=== PATIENT | female | born 1975 | race Caucasian/White ===

== ENCOUNTER → 2018-01-14 | Outpatient (CLI) | payer BC ==
[2016-07-15 09:56] VITALS: BP 142/90
[~2018-01-14] MED LIST: BUPR150T11 PO; CIPR500T94 PO; CLIN300C8 PO; ESCITALOPRAM OX10 MG PO; FLUC150T PO; HYDR-971 PO; LISI-334 PO; OMEP40CA5 PO
--- NOTE | 2018-01-14 12:14 | RAD ---
CT abdomen and pelvis without contrast 01/14/2018 Clinical indication: Hematuria. Comparison: CT abdomen and pelvis 06/02/2016 Technique: Multiple CT images of the abdomen and pelvis were obtained without contrast. PQRS Compliance Statement: One or more of the following individualized dose reduction techniques were utilized for this examination: 1. Automated exposure control 2. Adjustment of the mA and/or kV according to patient size 3. Use of iterative reconstruction technique Findings: Evaluation of the solid abdominopelvic viscera, lymphadenopathy and vasculature is limited in the absence of intravenous contrast. Heart size is normal. Visualized lung bases are clear. Moderate diffuse hepatic steatosis. Gallbladder, spleen, adrenal glands, pancreas and kidneys are grossly unremarkable. Abdominal aorta is normal in caliber. There is a tiny hiatal hernia. Small and large bowel loops are normal in caliber without obstruction. Appendix is normal in appearance. No abdominal free fluid. No pneumoperitoneum. No retroperitoneal or mesenteric lymphadenopathy. Mildly distended and unopacified urinary bladder is grossly unremarkable. Prior hysterectomy with the vaginal cuff unremarkable. The right ovary is not definitely identified and may be absent. There is enlargement of the left ovary measuring 4.8 x 2.8 cm series 2/image 111. No pelvic free fluid. No iliac or inguinal lymphadenopathy. There is a tiny fat-containing inguinal hernia. There are no destructive osseous lesions. Impression: 1. No hydronephrosis or nephrolithiasis. 2. Left ovarian enlargement with nonvisualization of the right ovary, may be surgically absent. Clinical correlation and pelvic ultrasound is recommended for further evaluation. 3. Hepatic steatosis.
== END | disposition home or self-care (01) ==
LOC: CT 10:50
PROVIDERS: ATTEND Family Medicine
DX: N30.00 Acute cystitis without hematuria (principal); K76.0 Fatty (change of) liver, not elsewhere classified; N83.8 Other noninflammatory disorders of ovary, fallopian tube and broad ligament; K40.90 Unilateral inguinal hernia, without obstruction or gangrene, not specified as recurrent; K44.9 Diaphragmatic hernia without obstruction or gangrene
CPT/HCPCS: 74176

== ENCOUNTER 2018-02-07 15:15 | Emergency (ER) | payer BC ==
[~2018-02-07] VITALS: Ht 170.2 cm; Wt 111.1 kg
[2018-02-07 15:23] VITALS: BP 142/90
--- NOTE | 2018-02-07 16:06 | RAD ---
Right knee, 3 views, 02/07/2018: History: Fall, pain No fracture or dislocation is identified. No joint effusion is evident. IMPRESSION: No acute right knee abnormality is detected. Left ankle, 3 views, 02/07/2018: No fracture or dislocation is identified. There is mild soft tissue swelling about the ankle. IMPRESSION: No acute bony abnormality is detected. Left wrist, 3 views, 02/07/2018: No fracture or dislocation is identified.
[2018-02-07] MEDS ORDERED: HYDROcodone/APAP 5/325MG 1 TAB TABLET PO ONE (16:15)
[2018-02-07] MEDS ORDERED: HYDR-971 PO (16:19)
[2018-02-07] MEDS ORDERED: CYCL-331 PO (16:19)
--- NOTE | 2018-02-07 16:19 | PHYS DOC ---
Past History Past Medical History: Hypertension, UTI Past Surgical History: Hysterectomy, Other Smoking: Non-smoker Alcohol Use: None Drug Use: None Adult General Chief Complaint Chief Complaint: MULTIPLE TRAUMA/FALL HPI HPI 42-year-old male patient state she was in vacation in [place] and had an accidental fall from a standing position after she tripped on her shoe 5 days ago and injured her right knee and increased and ankle without loss of consciousness or focal neuro deficit. Patient complaining of continuing pain in affected areas that getting force with activity. Patient states she took ibuprofen without improvement of her pain. Patient is up-to-date with her tetanus immunization. Review of Systems Review of Systems Constitutional: Denies fever or chills [] Eyes: Denies change in visual acuity, redness, or eye pain [] HENT: Denies nasal congestion or sore throat [] Respiratory: Denies cough or shortness of breath [] Cardiovascular: No additional information not addressed in HPI [] GI: Denies abdominal pain, nausea, vomiting, bloody stools or diarrhea [] : Denies dysuria or hematuria [] Musculoskeletal: Denies back pain, reports joint pain [] Integument: Denies rash or skin lesions [] Neurologic: Denies headache, focal weakness or sensory changes [] Endocrine: Denies polyuria or polydipsia [] All other systems were reviewed and found to be within normal limits, except as documented in this note. Current Medications Current Medications Current Medications Medications (Trade) Dose Ordered Sig/Randy Start Time Stop Time Status Last Admin Dose Admin Acetaminophen/ Hydrocodone Bitart (Lortab 5/325) 1 tab 1X ONCE 02/07/18 16:15 02/07/18 16:16 Allergies Allergies Allergies Coded Allergies Type Severity Reaction Last Updated Verified Sulfa (Sulfonamide Antibiotics) Allergy Unknown 06/02/16 Yes promethazine Allergy Unknown 06/02/16 Yes metoclopramide Adverse Reaction Mild 06/02/16 Yes Physical Exam Physical Exam Constitutional: Well developed, well nourished, mild distress, non-toxic appearance. [] HENT: Normocephalic, atraumatic Eyes: PERRLA, EOMI, conjunctiva normal, no discharge. [] Neck: Normal range of motion, no tenderness, supple, no stridor. [] Cardiovascular:Heart rate regular rhythm, no murmur [] Lungs & Thorax: Bilateral breath sounds clear to auscultation [] Abdomen: Bowel sounds normal, soft, no tenderness, no masses, no pulsatile masses. [] Skin: Warm, dry, no erythema, no rash, several areas of contusion. [] Back: No tenderness, no CVA tenderness. [] Extremities: Right knee with old contusion and abrasion in distal and lateral side of knee without deformity or limited range of motion, left wrist with small contusion without deformity, left ankle with lateral malleolus edema without deformity Neurologic: Alert and oriented X 3, normal motor function, normal sensory function, no focal deficits noted. [] Psychologic: Affect normal, judgement normal, mood normal. [] EKG EKG [] Radiology/Procedures Radiology/Procedures [ [address] [place] [id number] IMAGING REPORT Signed PATIENT: RACHEL WOLF ACCOUNT: [id number] : 1975 LOCATION: ER AGE: 42 SEX: F EXAM [id number]; [id number] STATUS: REG ER ORD. PHYSICIAN: LORE HOLLINGSWORTH MD REASON: fall PROCEDURE: ANKLE LEFT 3V; KNEE RIGHT 3V; WRIST 3V LEFT Right knee, 3 views, 02/07/2018: History: Fall, pain No fracture or dislocation is identified. No joint effusion is evident. IMPRESSION: No acute right knee abnormality is detected. Left ankle, 3 views, 02/07/2018: No fracture or dislocation is identified. There is mild soft tissue swelling about the ankle. IMPRESSION: No acute bony abnormality is detected. Left wrist, 3 views, 02/07/2018: No fracture or dislocation is identified. IMPRESSION: No acute bony abnormality is detected. DICTATED AND SIGNED BY: DAVIS ESCOBEDO MD DATE: 02/07/18 [id number] CC: DANAE MUNOZ DO; LORE HOLLINGSWORTH MD ~ ] Course & Med Decision Making Course & Med Decision Making Pertinent Imaging studies reviewed. (See chart for details) Evaluation of patient in ER showed 42-year-old female patient with a fall 5 days ago and complaining of pain in several joint. X-ray did not show acute fracture. Patient had old contusion of right knee and left wrist and edema of left ankle. Patient instructed to apply ice on the affected area. Dragon Disclaimer Dragon Disclaimer This electronic medical record was generated, in whole or in part, using a voice recognition dictation system. Departure Departure: Impression: Primary Impression: Contusion of right knee Additional Impressions: Contusion of left wrist Left ankle sprain Fall Disposition: 01 HOME, SELF-CARE Condition: STABLE Referrals: DANAE MUNOZ DO (PCP) Patient Instructions: Contusion Additional Instructions: Apply ice on the affected area Follow-up with your primary care physician in 3-5 days Return to ER if not getting better Scripts Hydrocodone Bit/Acetaminophen (NORCO 5-325 TABLET) 1 Each Tablet 1 TAB PO PRN Q6HRS Y for PAIN, #10 TAB 0 Refills Prov: LORE HOLLINGSWORTH MD 02/07/18 Cyclobenzaprine Hcl (CYCLOBENZAPRINE HCL) 10 Mg Tablet 1 TAB PO TID, #21 TAB Prov: LORE HOLLINGSWORTH MD 02/07/18 Problem Qualifiers LORE HOLLINGSWORTH MD Feb 07, 2018 16:19
== END 2018-02-07 16:28 | disposition home or self-care (01) ==
LOC: ER 15:15
DX: S93.402A Sprain of unspecified ligament of left ankle, initial encounter (principal); S80.01XA Contusion of right knee, initial encounter; S60.212A Contusion of left wrist, initial encounter; I10 Essential (primary) hypertension; Z87.440 Personal history of urinary (tract) infections; Z88.2 Allergy status to sulfonamides; Z88.8 Allergy status to other drugs, medicaments and biological substances; W01.0XXA Fall on same level from slipping, tripping and stumbling without subsequent striking against object, initial encounter; Y93.89 Activity, other specified; Y99.8 Other external cause status; Y92.89 Other specified places as the place of occurrence of the external cause
CPT/HCPCS: 73110; 73562; 73610; 99284

== ENCOUNTER → 2018-02-11 | Outpatient (CLI) | payer BC ==
[2018-02-07 15:23] VITALS: BP 142/90
[~2018-02-11] MED LIST changes: +CYCL-331 PO
--- NOTE | 2018-02-11 10:01 | RAD ---
Indication: Left wrist pain status post fall. Technique: CT of the left breast without IV contrast with multiplanar reformats. Comparison: Plain films from 02/02 Findings: There is a nondisplaced fracture of the hook of the hamate. No other fracture or dislocation. No evidence of joint space narrowing or productive changes to suggest arthritic process. No soft tissue swelling or hematoma. Impression: Nondisplaced fracture of the hook of the hamate. PQRS Compliance Statement: One or more of the following individualized dose reduction techniques were utilized for this examination: 1. Automated exposure control 2. Adjustment of the mA and/or kV according to patient size 3. Use of iterative reconstruction technique
== END | disposition home or self-care (01) ==
LOC: CT 09:28
PROVIDERS: ATTEND Nurse Practitioner Family
DX: S62.155D Nondisplaced fracture of hook process of hamate [unciform] bone, left wrist, subsequent encounter for fracture with routine healing (principal); Z91.81 History of falling; X58.XXXD Exposure to other specified factors, subsequent encounter
CPT/HCPCS: 73200

== ENCOUNTER 2018-06-26 11:16 | Emergency (ER) | payer BC ==
[~2018-06-26] VITALS: Ht 170.2 cm; Wt 120.7 kg
[2018-06-26] MEDS ORDERED: LIDOCAINE 1%/EPI 1:100,000 20 ML VIAL. IJ ONE (11:30)
[2018-06-26] MEDS ORDERED: BACITRACIN ZINC TOPICAL OINT PACKET. TP ONE (11:30)
[2018-06-26] MEDS ORDERED: DIPHTH,PERTUSS(ACELL),TET TOX 0.5 ML DISP.SYRIN. VAX IM ONE (11:45)
[2018-06-26 12:25] VITALS: BP 133/54
--- NOTE | 2018-06-26 12:28 | PHYS DOC ---
Past History Past Medical History: Hypertension, UTI Past Surgical History: Hysterectomy, Other Smoking: Non-smoker Alcohol Use: Occasionally Drug Use: None Adult General Chief Complaint Chief Complaint: LACERATION/AVULSION HPI HPI 42-year-old female presents with report of laceration to right richards which occurred just prior to arrival. Patient reports they were cleaning and she ended up knocking one of her husbands drill bits off a top shelf and ended up coming down causing a cut to her right richards. Patient unsure when her last tetanus shot was. Patient thinks it was greater than 5 years ago. Denies other injury. Review of Systems Review of Systems Constitutional: Denies fever or chills [] Musculoskeletal: Denies back pain or joint pain [] Integument: Reports laceration to right richards; denies redness or swelling Complete systems were reviewed and found to be within normal limits, except as documented in this note. Current Medications Current Medications Current Medications Medications (Trade) Dose Ordered Sig/Randy Start Time Stop Time Status Last Admin Dose Admin Bacitracin (Bacitracin Topical Pkt) 1 pkt 1X ONCE 06/26/18 11:30 06/26/18 11:31 DC 06/26/18 12:14 1 PKT Diphtheria/ Tetanus/Acell Pertussis (Boostrix) 0.5 ml ONCE ONCE 06/26/18 11:45 06/26/18 11:46 DC 06/26/18 11:52 0.5 ML Lidocaine/ Epinephrine (Xylocaine 1%-Epi 1:100,000) 20 ml 1X ONCE 06/26/18 11:30 06/26/18 11:31 DC 06/26/18 12:13 20 ML Allergies Allergies Allergies Coded Allergies Type Severity Reaction Last Updated Verified Sulfa (Sulfonamide Antibiotics) Allergy Unknown 06/02/16 Yes promethazine Allergy Unknown 06/02/16 Yes metoclopramide Adverse Reaction Mild 06/02/16 Yes Physical Exam Physical Exam Constitutional: Well developed, well nourished, no acute distress, non-toxic appearance. [] HENT: Normocephalic, atraumatic, Eyes: Conjunctiva normal, no discharge. [] Neck: Normal range of motion, supple, Cardiovascular: Left DP and PT +2, CR < 2 sec Skin: Warm, dry, vertical incision noted to distal 1/3 of richards on right approximately 4cm Extremities: ROM intact, laceration to right anterior richards as above Neurologic: Alert and oriented X 3, speech normal Psychologic: Affect normal, judgement normal, mood normal. [] Current Patient Data Vital Signs Vital Signs Date Time Temp Pulse Resp B/P (MAP) Pulse Ox O2 Delivery O2 Flow Rate FiO2 06/26/18 11:25 98.6 98 20 95 Room Air EKG EKG [] Radiology/Procedures Radiology/Procedures [] Course & Med Decision Making Course & Med Decision Making Pertinent Labs and Imaging studies reviewed. (See chart for details) Patient presents with history of laceration to right richards. Tetanus updated. Wound cleaned, irrigated, repaired and dressed. Patient stable for discharge with outpatient follow-up with PCP. Discussed findings and plan with patient and family, who acknowledge understanding and agreement. Dragon Disclaimer Dragon Disclaimer This electronic medical record was generated, in whole or in part, using a voice recognition dictation system. Laceration/Wound Repair Laceration/Wound Repair : Wound Location: lower extremity (right richards) Wound's Depth, Shape: superficial, linear Wound Length (cm): 4 Wound Explored: no foreign body removed Irrigated w/ Saline (ccs): 200 Betadine Prep?: No (Chloraprep) Anesthesia: Lidocaine w/ Epi (1%) Volume Anesthetic (ccs): 3 Wound Debrided: minimal Wound Repaired With: sutures Suture Size/Type: 3:0, nylon Number of Sutures: 6 Sterile Dressing Applied?: Yes Progress Time out completed. Verbal consent from patient. Departure Departure: Impression: Primary Impression: Laceration Disposition: 01 HOME, SELF-CARE Condition: STABLE Referrals: DANAE MUNOZ DO (PCP) Patient Instructions: Laceration Care, Adult, [id number] Additional Instructions: Do not soak your wound. You may shower. Clean wound daily with soap and water. Change dressing 2 times daily. Use over the counter antibiotic ointment with each dressing change. Sutures need to be removed in 7-10 days. Present to your family doctor or local urgent care for removal. You may also present to the ED but it will be an additional visit/charge. After suture removal you may use Vitamin E ointment to soften the wound and prevent scarring. AMANDA COLE DO Jun 26, 2018 12:28
[2018-06-27] MEDS ORDERED: HYDR-79 PO (22:30)
[2018-06-27] MEDS ORDERED: CEPH-264 PO (22:31)
== END 2018-06-26 12:48 | disposition home or self-care (01) ==
LOC: ER 11:16
DX: S81.811A Laceration without foreign body, right lower leg, initial encounter (principal); I10 Essential (primary) hypertension; Z87.440 Personal history of urinary (tract) infections; Z88.2 Allergy status to sulfonamides; Z88.8 Allergy status to other drugs, medicaments and biological substances; W26.8XXA Contact with other sharp object(s), not elsewhere classified, initial encounter; Y93.E9 Activity, other interior property and clothing maintenance; Y92.89 Other specified places as the place of occurrence of the external cause; Y99.8 Other external cause status
CPT/HCPCS: 12002; 90471; 90715; 99283-25

== ENCOUNTER 2018-06-27 22:10 | Emergency (ER) | payer BC ==
[~2018-06-27] VITALS: Ht 170.2 cm; Wt 120.7 kg
--- NOTE | 2018-06-27 22:14 | ED.ADGEN ---
Past History Past Medical History: Hypertension, UTI Past Surgical History: Hysterectomy, Other Smoking: Non-smoker Alcohol Use: Occasionally Drug Use: None Adult General Chief Complaint Chief Complaint ".. I was just here for laceration on Rt. leg.. now I got this infection on my personal part... I get the abscess every so often.. I was using compresses... but it gotten really sore..." HPI HPI Patient is a 42 year old female who presents with above hx and complaints Lt Labia abscess. Patient has a pointing pimple and surrounding cellulitis. Patient's had frequent episodes of small abscesses and cellulitis. Patient does shave her pubic area. Patient denies any history immunosuppression. Patient states her tetanus was updated yesterday when she was here for sutures of her right richards. There is no significant adenopathy. No history of vaginal discharge. She denies history of diabetes. No recent travel or specific ill contacts. Patient normally follows with Dr. Caldwell. Review of Systems Review of Systems Constitutional: Denies fever or chills [] Eyes: Denies change in visual acuity, redness, or eye pain [] HENT: Denies nasal congestion or sore throat [] Respiratory: Denies cough or shortness of breath [] Cardiovascular: No additional information not addressed in HPI [] GI: Denies abdominal pain, nausea, vomiting, bloody stools or diarrhea [] : Denies dysuria or hematuria [] Musculoskeletal: Denies back pain or joint pain [] Integument: Denies rash or skin lesions []Cellulitis lt labia majora Neurologic: Denies headache, focal weakness or sensory changes [] Endocrine: Denies polyuria or polydipsia [] All other systems were reviewed and found to be within normal limits, except as documented in this note. Family History Family History Noncontributory Current Medications Current Medications Current Medications Medications (Trade) Dose Ordered Sig/Randy Start Time Stop Time Status Last Admin Dose Admin Ceftriaxone Sodium (Rocephin Im) 1 gm 1X ONCE 06/27/18 22:30 06/27/18 22:46 DC 06/27/18 22:44 1 GM Ceftriaxone Sodium (Rocephin) 1 gm STK-MED ONCE 06/27/18 22:37 06/27/18 22:38 DC Hydrocodone Bitartrate/ Ibuprofen (Vicoprofen 7.5-200) 2 tab 1X ONCE 06/27/18 22:45 06/27/18 22:46 DC 06/27/18 22:44 2 TAB Trimethoprim/ Sulfamethoxazole (Bactrim Ds) 1 tab 1X ONCE 06/27/18 22:30 06/27/18 22:34 DC Allergies Allergies Allergies Coded Allergies Type Severity Reaction Last Updated Verified Sulfa (Sulfonamide Antibiotics) Allergy Unknown 06/02/16 Yes promethazine Allergy Unknown 06/02/16 Yes metoclopramide Adverse Reaction Mild 06/02/16 Yes Physical Exam Physical Exam Constitutional: in acute distress, non-toxic appearance. [] HENT: Normocephalic, atraumatic, bilateral external ears normal, oropharynx moist, no oral exudates, nose normal. [] Eyes: PERRLA, EOMI, conjunctiva normal, no discharge. [] Neck: Normal range of motion, no tenderness, supple, no stridor. [] Cardiovascular:Heart rate regular rhythm, no murmur [] Lungs & Thorax: Bilateral breath sounds clear to auscultation [] Abdomen: Bowel sounds normal, soft, no tenderness, no masses, no pulsatile masses. []Obese. Labial abscess as per history of present illness. Old surgery scar Skin: Warm, dry, no erythema, no rash. [] Back: No tenderness, no CVA tenderness. [] Extremities: No tenderness, no cyanosis, no clubbing, ROM intact, no edema. [] Right lower leg dressing at site of prior laceration 06/26 Neurologic: Alert and oriented X 3, normal motor function, normal sensory function, no focal deficits noted. [] Psychologic: Affect anxious, judgement normal, mood normal. [] Current Patient Data Vital Signs Vital Signs Date Time Temp Pulse Resp B/P (MAP) Pulse Ox O2 Delivery O2 Flow Rate FiO2 06/27/18 22:20 98.1 100 16 98 Room Air EKG EKG [] Radiology/Procedures Radiology/Procedures [] Course & Med Decision Making Course & Med Decision Making Pertinent Labs and Imaging studies reviewed. (See chart for details). Continue sitz baths. Will start on Keflex 500x3 times a day. Patient to follow- up primary care advised may need to change to clindamycin or doxycycline if she does not respond to Keflex and the sitz baths. Recommended she not shave her pubic area since this can exacerbate re-current abscesses and folliculitis. Procedure note-incision and drainage- abscess area and cellulitis prepped with Betadine. One stick with 11 blade with approximately 1 mL of pus expressed. [] Final Impression Final Impression 1. Cellulitis- Abscess Lt Labia majora[] Dragon Disclaimer Dragon Disclaimer This electronic medical record was generated, in whole or in part, using a voice recognition dictation system. PUJA ALAN MD Jun 27, 2018 22:13
[2018-06-27] MEDS ORDERED: HYDR-79 PO (22:30)
[2018-06-27] MEDS ORDERED: cefTRIAXone IM 1 GM VIAL IM ONE (22:30)
[2018-06-27] MEDS ORDERED: SMZ/TMP 800/160MG TABLET. PO ONE (22:30)
[2018-06-27] MEDS ORDERED: CEPH-264 PO (22:31)
[2018-06-27] MEDS ORDERED: cefTRIAXone SODIUM 1 GM VIAL IV ONE (22:37)
[2018-06-27] MEDS ORDERED: HYDROcodon/IBUPROFEN 7.5/200MG 1 TAB TABLET PO ONE (22:45)
[2018-06-27 23:05] VITALS: BP 165/92
== END 2018-06-27 23:05 | disposition home or self-care (01) ==
LOC: ER 22:10
DX: N76.4 Abscess of vulva (principal); I10 Essential (primary) hypertension; Z87.440 Personal history of urinary (tract) infections; Z90.710 Acquired absence of both cervix and uterus; Z88.2 Allergy status to sulfonamides; Z88.8 Allergy status to other drugs, medicaments and biological substances
CPT/HCPCS: 56405; 96372; 99284; J0696

== ENCOUNTER → 2018-09-24 | Day surgery (SDC) | payer BC ==
[~2018-09-24] MED LIST changes: +ALBUTEROL SULFATE 2.5 MG/3 ML NEBU. NEB PRN; +ATROPINE 0.5 MG/5 ML DISP.SYRIN. IV PRN; +CEPH-264 PO; +HYDR-79 PO; +IV RINGERS SOLUTION,LACTATED 1,000 ML IV SCH; +LIDOCAINE 2% PF Vial for OR 5 ML VIAL. ONE; +METF500T16 PO; +NALOXONE 0.4 MG/ML VIAL. IV PRN; +ONDANSETRON PF 4 MG/2 ML VIAL. IV PRN; +PROPOFOL 40 ML IV ONE; +TROS60CA2 PO
[2018-09-24 14:18] VITALS: BP 136/83
--- NOTE | 2018-09-28 14:09 | PATHOLOGY ---
[facility] Accession Number: [id number] . 01 Material submitted: . PART A: ANTRUM PART B: GASTRIC POLYP PART C: DISTAL ESOPHAGUS . 01 Clinical history: . Epigastric pain, ulcers . 02 Diagnosis: A. Stomach, antrum, biopsy: - Chronic superficial gastritis, mild. - No evidence of Helicobacter pylori on immunoperoxidase stain. . B. "Gastric polyp", biopsy: - Fundic gland polyp. . C. Esophagus, distal, biopsy: - Squamocolumnar epithelium with focal intestinal metaplasia, findings compatible with Silva's esophagus; negative for dysplasia. - Mild chronic inflammation. . (SKM:mml; 09/28/18) [facility]/09/28/2018 . 02 Electronically signed: . Sha Avendano MD, Pathologist NPI- [id number] . 01 Gross description: . A. Received in formalin labeled "Anahi Choudhury, antrum BX," are 2 segments of patel soft tissue measuring 0.7 x 0.2 x 0.2 cm in aggregate dimensions and ranging from 0.3 to 0.6 cm in maximum dimension. The specimen is submitted entirely in cassette A1. . B. Received in formalin labeled "Anahi Choudhury, gastric polyp," is a single segment of patel soft tissue measuring 0.4 cm in maximum dimension. The specimen is entirely submitted in cassette B1. . C. Received in formalin labeled "Macey, Anahi, distal esophageal biopsy," are 2 segments of patel soft tissue measuring 0.5 x 0.2 x 0.2 cm in aggregate dimensions and ranging from 0.2 to 0.3 cm in maximum dimension. The specimen is submitted entirely in cassette C1. (TSD; 09/27/2018) TOB/TOB . 02 Pathologist provided ICD-10: K29.30, K31.7, K22.70, K20.9 . 02 CPT . 356678, 836320, 312188, [id number] Specimen Comment: A courtesy copy of this report has been sent to Specimen Comment: [phone], . Specimen Comment: Report sent to / DR MUNOZ Specimen Comment: A duplicate report has been generated due to demographic updates. Performed at: [facility] [address] [id number] MD José Manuel Bond MD Phone: [phone] Performed at: [address] [id number] MD Bry Aguilar MD Phone: [phone]
== END | disposition home or self-care (01) ==
LOC: SURG 10:55
PROVIDERS: ATTEND Internal Medicine Gastroenterology
DX: K31.7 Polyp of stomach and duodenum (principal); K44.9 Diaphragmatic hernia without obstruction or gangrene; K29.30 Chronic superficial gastritis without bleeding; K29.00 Acute gastritis without bleeding; K22.8 Other specified diseases of esophagus; K21.0 Gastro-esophageal reflux disease with esophagitis; I10 Essential (primary) hypertension; E11.9 Type 2 diabetes mellitus without complications; Z88.2 Allergy status to sulfonamides; Z88.8 Allergy status to other drugs, medicaments and biological substances; Z79.899 Other long term (current) drug therapy; Z79.84 Long term (current) use of oral hypoglycemic drugs
CPT/HCPCS: 43239; 88305; 88342; J2704; J3010; J2001

== ENCOUNTER 2019-01-13 16:52 | Emergency (ER) | payer SELFPAY ==
[~2019-01-13] VITALS: Ht 170.2 cm; Wt 108.9 kg
[~2019-01-13 16:52] MED LIST changes: -ALBUTEROL SULFATE 2.5 MG/3 ML NEBU. NEB PRN; -ATROPINE 0.5 MG/5 ML DISP.SYRIN. IV PRN; +HYDR-1179 PO; +HYDR-3165 PO; -HYDR-79 PO; -HYDR-971 PO; -IV RINGERS SOLUTION,LACTATED 1,000 ML IV SCH; -LIDOCAINE 2% PF Vial for OR 5 ML VIAL. ONE; -NALOXONE 0.4 MG/ML VIAL. IV PRN; -ONDANSETRON PF 4 MG/2 ML VIAL. IV PRN; -PROPOFOL 40 ML IV ONE
[2019-01-13 16:57] VITALS: BP 134/81
[2019-01-13] MEDS ORDERED: ONDA4TAB12 PO (17:14)
--- NOTE | 2019-01-13 17:15 | PHYS DOC ---
Past History Past Medical History: Depression, GERD, Hypertension Past Surgical History: Hysterectomy, Other Smoking: Non-smoker Alcohol Use: Occasionally Drug Use: None Adult General Chief Complaint Chief Complaint: FLU SYMPTOM HPI HPI 43-year-old female presents with body aches dry cough fever headache upper respiratory type symptoms. Her was diagnosed with the flu last week and is recovering. She did have her flu shot this year. She also states she has had some nausea. She denies any significant abdominal pain though.[] Review of Systems Review of Systems Constitutional: Reports fever[] Eyes: Denies change in visual acuity, redness, or eye pain [] HENT: Nasal congestion and clear rhinorrhea[] Respiratory: Per history of present illness[] Cardiovascular: No additional information not addressed in HPI [] GI: Nausea[] : Denies dysuria or hematuria [] Musculoskeletal: Denies back pain or joint pain [] Integument: Denies rash or skin lesions [] Neurologic: Denies headache, focal weakness or sensory changes [] Endocrine: Denies polyuria or polydipsia [] All other systems were reviewed and found to be within normal limits, except as documented in this note. Allergies Allergies Allergies Coded Allergies Type Severity Reaction Last Updated Verified promethazine Allergy Unknown 09/24/18 Yes metoclopramide Adverse Reaction Mild 09/24/18 Yes Physical Exam Physical Exam Constitutional: Well developed, well nourished, no acute distress, non-toxic appearance. [] HENT: Normocephalic, atraumatic, bilateral external ears normal, oropharynx moist, no oral exudates, nose normal. [] Eyes: PERRLA, EOMI, conjunctiva normal, no discharge. [] Neck: Normal range of motion, no tenderness, supple, no stridor. [] Cardiovascular:Heart rate regular rhythm, no murmur [] Lungs & Thorax: Bilateral breath sounds clear to auscultation [] Abdomen: Bowel sounds normal, soft, no tenderness, no masses, no pulsatile masses. [] Skin: Warm, dry, no erythema, no rash. [] Back: No tenderness, no CVA tenderness. [] Extremities: No tenderness, no cyanosis, no clubbing, ROM intact, no edema. [] Neurologic: Alert and oriented X 3, normal motor function, normal sensory function, no focal deficits noted. [] Psychologic: Affect normal, judgement normal, mood normal. [] Current Patient Data Vital Signs Vital Signs Date Time Temp Pulse Resp B/P (MAP) Pulse Ox O2 Delivery O2 Flow Rate FiO2 01/13/19 16:57 98.5 93 18 97 Room Air EKG EKG [] Radiology/Procedures Radiology/Procedures [] Course & Med Decision Making Course & Med Decision Making Pertinent Labs and Imaging studies reviewed. (See chart for details) [] Dragon Disclaimer Dragon Disclaimer This electronic medical record was generated, in whole or in part, using a voice recognition dictation system. Departure Departure: Impression: Primary Impression: Viral syndrome Disposition: HOME, SELF-CARE Condition: STABLE Referrals: PCP,NO (PCP) Patient Instructions: Influenza A (H1N1), Viral Infections Additional Instructions: Drink plenty of fluids for the next several days including Gatorade, Powerade or Pedialyte. Return to emergency department with any new or concerning symptoms Scripts Ondansetron (ONDANSETRON ODT) 4 Mg Tab.rapdis 1 TAB PO PRN Q6-8HRS for NAUSEA, #16 TAB Prov: BASILIO SANTANA DO 01/13/19 BASILIO SANTANA DO Jan 13, 2019 17:15
== END 2019-01-13 17:21 | disposition home or self-care (01) ==
LOC: ER 16:52
DX: B34.9 Viral infection, unspecified (principal); F32.9 Major depressive disorder, single episode, unspecified; K21.9 Gastro-esophageal reflux disease without esophagitis; I10 Essential (primary) hypertension; Z88.8 Allergy status to other drugs, medicaments and biological substances
CPT/HCPCS: 99283

== ENCOUNTER → 2019-10-10 | Outpatient (CLI) | payer SELFPAY ==
[~2019-10-10] MED LIST changes: +OMEP40CA45 PO; -OMEP40CA5 PO; +ONDA4TAB12 PO
--- NOTE | 2019-10-10 15:58 | RAD ---
CT Abdomen and Pelvis without contrast History: Right flank pain, hematuria Technique: Noncontrast CT imaging was performed of the abdomen and pelvis. Multiplanar images are reviewed. Exposure: One or more of the following individualized dose reduction techniques were utilized for this examination: 1. Automated exposure control 2. Adjustment of the mA and/or kV according to patient size 3. Use of iterative reconstruction technique. Comparison: January 14, 2018 Findings: No urolithiasis or hydronephrosis is identified. There are again some phleboliths in the pelvis. Accurate evaluation of abdominal visceral organs is limited without intravenous contrast. There is no obvious focal abnormality of the spleen, liver, or pancreas. There is no adrenal nodularity. Gallbladder is present without obvious intraluminal abnormality by CT. Accurate evaluation of bowel is limited without oral contrast. There is no significant free air, free fluid, bowel dilatation. Normal appendix is visualized without adjacent inflammatory change. There is retained stool greater of the right colon. There is again some fat in the inguinal canals bilaterally, no bowel. Impression: 1. There is no urolithiasis or hydronephrosis. 2. There is no CT evidence of acute appendicitis. There is retained stool greater of the right colon. Electronically signed by: Galo Christian MD (10/10/2019 3:54 PM) [id number]
== END | disposition home or self-care (01) ==
LOC: CT 15:07
PROVIDERS: ATTEND Physician Assistant
DX: K59.09 Other constipation (principal)
CPT/HCPCS: 74176

== ENCOUNTER 2020-12-26 13:52 | Emergency (ER) | payer BC ==
[~2020-12-26] VITALS: Ht 170.2 cm; Wt 106.0 kg
[~2020-12-26 13:52] MED LIST changes: -CLIN300C8 PO; +CLIN300C9 PO; -LISI-334 PO; +LISI20TA18 PO
[2020-12-26] MEDS ORDERED: FAMOTIDINE 20 MG/2 ML VIAL IVP ONE (14:30)
[2020-12-26] MEDS ORDERED: IV NORMAL SALINE 1,000ML 1,000 ML IV ONE (14:30)
[2020-12-26] MEDS ORDERED: HYDROmorphone PF 1 MG/ML DISP.SYRIN IV ONE (14:30)
[2020-12-26] MEDS ORDERED: ONDANSETRON PF 4 MG/2 ML VIAL. IVP ONE (14:30)
--- NOTE | 2020-12-26 14:32 | PHYS DOC ---
Past History Past Medical History: Depression, GERD, Hypertension Past Surgical History: Hysterectomy, Other Smoking: Non-smoker Alcohol Use: Occasionally Drug Use: None General Adult EDM: Chief Complaint: NAUSEA/VOMITING/DIARRHEA HPI: HPI: History gained from patient and . Patient is a 42-year-old female with a history of gastritis, Silva's esophagitis, biliary colic who presents with chief complaint of nausea and vomiting. Patient states she had an episode similar to today 1 week ago that resolved spontaneously. She states that she developed multiple spells of nonbloody emesis earlier today. She notes that the vomit appears bilious in nature. She does note epigastric and right upper quadrant discomfort. States it is sharp in nature. Denies any dysuria, hematuria, or polyuria. States she has had right upper quadrant symptoms intermittently over the past several years. States she is had her gallbladder evaluated but has never been bad enough to be removed. Denies changes to her stool caliber or consistency. States she last ate yesterday. Denies objective fevers. Does note that she smokes marijuana occasionally for her interstitial cystitis. States the pain is cramping and burning in nature. States it is nonradiating. States it is constant. No other complaints. Review of Systems: Review of Systems: Constitutional: Denies fever or chills Eyes: Denies change in visual acuity HENT: Denies nasal congestion or sore throat Respiratory: Denies cough or shortness of breath Cardiovascular: Denies chest pain or edema GI: Positive for abdominal pain, nausea, vomiting : Denies dysuria Musculoskeletal: Denies back pain or joint pain Integument: Denies rash Neurologic: Denies headache, focal weakness or sensory changes Endocrine: Denies polyuria or polydipsia Lymphatic: Denies swollen glands Psychiatric: Denies depression or anxiety Allergies: Allergies: Allergies Coded Allergies Type Severity Reaction Last Updated Verified promethazine Allergy Unknown 12/26/20 Yes metoclopramide Adverse Reaction Mild 12/26/20 Yes Physical Exam: PE: Constitutional: Well developed, well nourished, no acute distress, non-toxic appearance. [] HENT: Normocephalic, atraumatic, bilateral external ears normal, oropharynx moist, no oral exudates, nose normal. [] Eyes: PERRLA, EOMI, conjunctiva normal, no discharge. [] Neck: Normal range of motion, no tenderness, supple, no stridor. [] Cardiovascular:Heart rate regular rhythm, no murmur [] Lungs & Thorax: Bilateral breath sounds clear to auscultation [] Abdomen: Mild diffuse tenderness to palpation. Worse in the epigastric right upper quadrant. No involuntary guarding or rigidity noted. No peritonitis Skin: Warm, dry, no erythema, no rash. [] Back: No tenderness, no CVA tenderness. [] Extremities: No tenderness, no cyanosis, no clubbing, ROM intact, no edema. [] Neurologic: Alert and oriented X 3, normal motor function, normal sensory function, no focal deficits noted. [] Psychologic: Affect normal, judgement normal, mood normal. [] Current Patient Data: Labs: Laboratory Tests Test 12/26/20 14:18 12/26/20 14:25 Urine Collection Type Void Urine Color Yellow Urine Clarity Clear Urine pH 7.0 Urine Specific [place] 1.020 Urine Protein Neg Urine Glucose (UA) Neg mg/dL Urine Ketones (Stick) >=160 mg/dL Urine Blood Neg Urine Nitrite Neg Urine Bilirubin Neg Urine Urobilinogen Dipstick 0.2 mg/dL Urine Leukocyte Esterase Neg Urine RBC Occ /HPF Urine WBC Occ /HPF Urine Squamous Epithelial Cells Mod /LPF Urine Bacteria Few /HPF Urine Test Negative White Blood Count 7.9 x10^3/uL Red Blood Count 4.40 x10^6/uL Hemoglobin 13.4 g/dL Hematocrit 40.1 % Mean Corpuscular Volume 91 fL Mean Corpuscular Hemoglobin 31 pg Mean Corpuscular Hemoglobin Concent 34 g/dL Red Cell Distribution Width 13.7 % Platelet Count 427 x10^3/uL Neutrophils (%) (Auto) 75 % Lymphocytes (%) (Auto) 19 % Monocytes (%) (Auto) 5 % Eosinophils (%) (Auto) 1 % Basophils (%) (Auto) 0 % Neutrophils # (Auto) 5.9 x10^3uL Lymphocytes # (Auto) 1.5 x10^3/uL Monocytes # (Auto) 0.4 x10^3/uL Eosinophils # (Auto) 0.1 x10^3/uL Basophils # (Auto) 0.0 x10^3/uL Sodium Level 135 mmol/L Potassium Level 3.8 mmol/L Chloride Level 97 mmol/L Carbon Dioxide Level 26 mmol/L Anion Gap 12 Blood Urea Nitrogen 12 mg/dL Creatinine 1.1 mg/dL Estimated GFR (Cockcroft-Gault) 54.2 BUN/Creatinine Ratio 11 Glucose Level 110 mg/dL Calcium Level 9.4 mg/dL Total Bilirubin 0.7 mg/dL Aspartate Amino Transf (AST/SGOT) 26 U/L Alanine Aminotransferase (ALT/SGPT) 56 U/L Alkaline Phosphatase 91 U/L Troponin I Quantitative < 0.017 ng/mL Total Protein 8.1 g/dL Albumin 4.3 g/dL Albumin/Globulin Ratio 1.1 Lipase 141 U/L Current Medications Medications (Trade) Dose Ordered Sig/Randy Route PRN Reason Start Time Stop Time Status Last Admin Dose Admin Sodium Chloride 1,000 ml @ 1,000 mls/hr 1X ONCE IV 12/26/20 14:30 12/26/20 15:29 DC 12/26/20 14:41 Ondansetron HCl (Zofran) 4 mg 1X ONCE IVP 12/26/20 14:30 12/26/20 14:33 DC 12/26/20 14:42 Famotidine (Pepcid Vial) 20 mg 1X ONCE IVP 12/26/20 14:30 12/26/20 14:33 DC 12/26/20 14:45 Hydromorphone HCl (Dilaudid) 1 mg 1X ONCE IV 12/26/20 14:30 12/26/20 14:33 DC 12/26/20 14:51 Fentanyl Citrate (Fentanyl 5ml Vial) 50 mcg 1X ONCE IV 12/26/20 16:00 12/26/20 15:50 DC Haloperidol Lactate (Haldol) 5 mg 1X ONCE IVP 12/26/20 16:00 12/26/20 16:01 DC Vital Signs: Vital Signs Date Time Temp Pulse Resp B/P (MAP) Pulse Ox O2 Delivery O2 Flow Rate FiO2 12/26/20 14:05 97.3 86 16 129/88 (102) 97 Room Air EKG: EKG: [] EKG consistent with normal sinus rhythm. Ventricular rate of 90 bpm. [place] normal. Intervals normal. No acute ischemic changes noted. Radiology/Procedures: Radiology/Procedures: [address] [address] IMAGING REPORT Signed PATIENT: RACHEL WOLF RACCOUNT: [id number] : 1975 LOCATION: ER AGE: 45 SEX: F EXAM STATUS: REG ER ORD. PHYSICIAN: LAN GAMING DO REASON: epigastric pain PROCEDURE: CT ABD PELV W/ IV CONTRST ONLY Abdominal and Pelvis CT, Without Contrast: History: Reason: epigastric pain / Spl. Instructions: / History: Comparison: October 10, 2019. Procedure: Axial images are obtained of the abdomen and pelvis, without IV or oral contrast. Oral Contrast: No Findings: Evaluation of solid organs is limited without contrast. There is tiny pleural effusions. There is a small hiatal hernia. The gallbladder appears normal. The appendix is normal. There is fat-containing inguinal canal hernias bilaterally. There is a 7.3 similar length of moderate wall thickening of the right transve rse colon without surrounding inflammation. There is mild wall thickening of the left colon. There is a 3.7 cm length of moderate wall thickening in the ascending colon. Liver: Normal. Spleen: Normal. Pancreas: Normal. Adrenal Glands: Normal. Kidneys: Normal. There is no free air or free fluid. There is no lymphadenopathy. The urinary bladder appears normal. There is no pericolonic inflammation identified. Impression: 1. Tiny pleural effusions in the lung bases. 2. Segment of wall thickening in the transverse colon and cecum are suspicious for adenocarcinoma however there is also areas of mild wall thickening of the l eft colon and an inflammatory or infectious colitis is possible. Consider follow-up endoscopy. End impression PQRS Compliance Statement: One or more of the following individualized dose reduction techniques were utilized for this examination: 1. Automated exposure control 2. Adjustment of the mA and/or kV according to patient size 3. Use of iterative reconstruction technique Electronically signed by: Amando Stewart III, MD (12/26/2020 5:08 PM) [facility] DICTATED AND SIGNED BY: AMANDO STEWART III, MD DATE: 12/26/201701 CC: ALEXYS IVY PAC; LAN GAMING DO ~MTH0 [address] [address] IMAGING REPORT Signed PATIENT: RACHEL WOLF RACCOUNT: [id number] : 1975 LOCATION: ER AGE: 45 SEX: F EXAM STATUS: REG ER ORD. PHYSICIAN: LAN GAMING DO REASON: RUQ pain. n/v PROCEDURE: ABDOMEN LTD EXAMINATION: US ABDOMEN LTD 12/26/2020 3:30 PM INDICATION: Right upper quadrant pain, nausea vomiting TECHNIQUE: Penny scale and color Doppler ultrasound images of the right upper quadrant were obtained. COMPARISON: CT abdomen pelvis 12/10/2018. FINDINGS: Liver: The liver is normal in size measuring 17.3 cm in length. Normal hepatic echogenicity. No focal liver lesion. Gallbladder: The gallbladder is normal in caliber. No cholelithiasis or sludge. The gallbladder wall is normal in thickness measuring less than 2 mm. Sonographic Campa's sign is negative. Bile ducts: The common bile duct is normal measuring 2 mm. No intrahepatic b iliary duct dilatation. Right kidney: The right kidney measures 9.2 x 5.2 x 4.3 cm. Normal cortical thickness and echogenicity. There is a 6 mm echogenic focus in the right kidney could be a calculus although there is no definite shadowing. No hydronephrosis. Other: Pancreas is normal where visualized. Inferior vena cava is patent at the level of the liver. IMPRESSION: 1. Normal gallbladder. 2. 6 mm echogenic focus in the right kidney, calculus possible although no definite shadowing. No hydronephrosis. Electronically signed by: Jeanette Delatrore MD (12/26/2020 3:57 PM) [id number] DICTATED AND SIGNED BY: JEANETTE DELATORRE MD DATE: 12/26/20 1554 CC: ALEXYS IVY PAC; LAN GAMING DO ~MTH0 0 [] Heart Score: Risk Factors: Risk Factors: DM, Current or recent (<one month) smoker, HTN, HLP, family history of CAD, obesity. Risk Scores: Score 0 - 3: 2.5% MACE over next 6 weeks - Discharge Home Score 4 - 6: 20.3% MACE over next 6 weeks - Admit for Clinical Observation Score 7 - 10: 72.7% MACE over next 6 weeks - Early Invasive Strategies Course & Med Decision Making: Course & Med Decision Making Pertinent Labs and Imaging studies reviewed. (See chart for details) [] Patient is a 45-year-old female who presents with complaint of epigastric abdominal pain associate with nausea and vomiting. Initial vital signs unremarkable. Patient does have mild diffuse tenderness palpation. No acute peritonitis appreciated. Given her history of reported biliary colic and gastritis right upper quadrant ultrasound was obtained. No acute findings identified. Patient did continue to have discomfort after pain medication. Given the CT imaging was obtained. Patient does have infectious versus inflammatory changes in the bowel. Furthermore there was note of concern for s ome change that could present adenocarcinoma. I did discuss the imaging findings with general surgeon Dr. Vargas. He states that it is unclear based on the images if this is anything other than colitis. Given this he did ultimately recommend transfer to [place] for general surgery and GI consultation. I did discuss results of labs and imaging at length with the patient and . They are ultimately agreeable to transfer to [place] for further care. Patient was given a dose of Augmentin in the emergency department. Symptoms are well controlled at this time. She has remained hemodynamically stable and is awaiting transport. Sepideh Disclaimer: Sepideh Disclaimer: This electronic medical record was generated, in whole or in part, using a voice recognition dictation system. Departure Departure: Impression: Primary Impression: Abdominal pain Qualified Codes: R10.84 - Generalized abdominal pain Additional Impressions: Nausea and vomiting Qualified Codes: R11.2 - Nausea with vomiting, unspecified Abnormal abdominal CT scan Disposition: 02 DC/TRF OTHER SHORT TERM HOS Condition: STABLE Referrals: ALEXYS IVY PAC (PCP) LAN GAMING DO Dec 26, 2020 14:32
[2020-12-26 14:42] LABS: BASO % 0 % (0-3); EOS # 0.1 x10^3/uL (0.0-0.7); EOS % 1 % (0-3); HEMATOCRIT 40.1 % (36.0-47.0); HEMOGLOBIN 13.4 g/dL (12.0-15.5); LYMPH # 1.5 x10^3/uL (1.0-4.8); LYMPH % 19 % (24-48); MEAN CORPUSCULAR HEMOGLOBIN 31 pg (25-35); MEAN CORPUSCULAR HGB CONC 34 g/dL (31-37); MEAN CORPUSCULAR VOLUME 91 fL (79-100); MONO # 0.4 x10^3/uL (0.0-1.1); MONO % 5 % (0-9); NEUT # 5.9 x10^3uL (1.8-7.7); NEUT % 75 % (31-73); PLATELET COUNT 427 x10^3/uL (140-400); RED CELL DISTRIBUTION WIDTH 13.7 % (11.5-14.5); WHITE BLOOD COUNT 7.9 x10^3/uL (4.0-11.0)
[2020-12-26 14:54] LABS: U PREG PATIENT NEGATIVE (NEG)
[2020-12-26 14:57] LABS: CALCIUM 9.4 mg/dL (8.5-10.1); CREATININE 1.1 mg/dL (0.6-1.0); GFR 54.2; POTASSIUM 3.8 mmol/L (3.5-5.1)
[2020-12-26 15:04] LABS: ALBUMIN 4.3 g/dL (3.4-5.0); ALBUMIN/GLOBULIN RATIO 1.1 (1.0-1.7); TOTAL BILIRUBIN 0.7 mg/dL (0.2-1.0); TOTAL PROTEIN 8.1 g/dL (6.4-8.2)
[2020-12-26 15:19] LABS: BACTERIA,URINE FEW /HPF (0-FEW); BILIRUBIN,URINE NEG (NEG); CLARITY,URINE CLEAR; COLOR,URINE YELLOW; GLUCOSE,URINE NEG (NEG); NITRITE,URINE NEG (NEG); RBC,URINE OCC /HPF (0-2); SQUAMOUS EPITHELIAL CELL,UR MOD /LPF; UROBILINOGEN,URINE 0.2 mg/dL (0.2 mg/dL); WBC,URINE OCC /HPF (0-4)
[2020-12-26] MEDS ORDERED: fentaNYL PF 250 MCG/5 ML VIAL IV ONE (16:00)
[2020-12-26] MEDS ORDERED: HALOPERIDOL LACT 5 MG/ML VIAL. IVP ONE (16:00)
--- NOTE | 2020-12-26 16:00 | RAD ---
EXAMINATION: US ABDOMEN [facility] 12/26/2020 3:30 PM INDICATION: Right upper quadrant pain, nausea vomiting TECHNIQUE: Penny scale and color Doppler ultrasound images of the right upper quadrant were obtained. COMPARISON: CT abdomen pelvis 12/10/2018. FINDINGS: Liver: The liver is normal in size measuring 17.3 cm in length. Normal hepatic echogenicity. No foc al liver lesion. Gallbladder: The gallbladder is normal in caliber. No cholelithiasis or sludge. The gallbladder wa ll is normal in thickness measuring less than 2 mm. Sonographic Campa's sign is negative. Bile ducts: The common bile duct is normal measuring 2 mm. No intrahepatic biliary duct dilatation. Right kidney: The right kidney measures 9.2 x 5.2 x 4.3 cm. Normal cortical thickness and echogenici ty. There is a 6 mm echogenic focus in the right kidney could be a calculus although there is no defi nite shadowing. No hydronephrosis. Other: Pancreas is normal where visualized. Inferior vena cava is patent at the level of the liver. IMPRESSION: 1. Normal gallbladder. 2. 6 mm echogenic focus in the right kidney, calculus possible although no definite shadowing. No hyd ronephrosis. Electronically signed by: Jeanette Delatorre MD (12/26/2020 3:57 PM) [id number]
--- NOTE | 2020-12-26 16:04 | EKG ---
[address] [address] Test Date: 2020-12-26 Test Time: 14:57:32 Pat Name: RACHEL WOLF Department: Room: Gender: F Painter Helper Spray: JOY : 1975 Requested By: LAN GAMING Order Number: [id number] Reading MD: Measurements Intervals [place] Rate: 90 P: 49 [place]: 164 QRS: 17 QRSD: 90 T: 32 QT: 384 QTc: 474 Interpretive Statements SINUS RHYTHM NORMAL ECG RI6.02 No previous ECG available for comparison
[2020-12-26] MEDS ORDERED: PANTOPRAZOLE IV 40 MG VIAL. IVP ONE (16:30)
[2020-12-26] MEDS ORDERED: IOHEXOL 300 MG/ML 75 ML VIAL. IV ONE (16:45)
--- NOTE | 2020-12-26 17:10 | RAD ---
Abdominal and Pelvis CT, Without Contrast: History: Reason: epigastric pain / Spl. Instructions: / History: Comparison: October 10, 2019. Procedure: Axial images are obtained of the abdomen and pelvis, without IV or oral contrast. Oral Contrast: No Findings: Evaluation of solid organs is limited without contrast. There is tiny pleural effusions. There is a small hiatal hernia. The gallbladder appears normal. The appendix is normal. There is fat-containing inguinal canal hernias bilaterally. There is a 7.3 similar length of moderate wall thickening of the right transverse colon without surro unding inflammation. There is mild wall thickening of the left colon. There is a 3.7 cm length of mod erate wall thickening in the ascending colon. Liver: Normal. Spleen: Normal. Pancreas: Normal. Adrenal Glands: Normal. Kidneys: Normal. There is no free air or free fluid. There is no lymphadenopathy. The urinary bladder appears normal. There is no pericolonic inflammation identified. Impression: 1. Tiny pleural effusions in the lung bases. 2. Segment of wall thickening in the transverse colon and cecum are suspicious for adenocarcinoma how ever there is also areas of mild wall thickening of the left colon and an inflammatory or infectious colitis is possible. Consider follow-up endoscopy. End impression PQRS Compliance Statement: One or more of the following individualized dose reduction techniques were utilized for this examinat ion: 1. Automated exposure control 2. Adjustment of the mA and/or kV according to patient size 3. Use of iterative reconstruction technique Electronically signed by: Otis Trejo III, MD (12/26/2020 5:08 PM) [facility]
[2020-12-26] MEDS ORDERED: CIPROFLOXACIN 400MG PREMIX 200 ML IV ONE (18:00)
[2020-12-26] MEDS ORDERED: AMOX1TAB61 PO (19:28)
--- NOTE | 2020-12-26 19:28 | PHYS DOC ---
Past History Past Medical History: Depression, GERD, Hypertension Past Surgical History: Hysterectomy, Other Smoking: Non-smoker Alcohol Use: Occasionally Drug Use: None Adult General Chief Complaint Chief Complaint: NAUSEA/VOMITING/DIARRHEA HPI HPI Patient is a [age] year old [sex] who presents with [] Review of Systems Review of Systems Constitutional: Denies fever or chills [] Eyes: Denies change in visual acuity, redness, or eye pain [] HENT: Denies nasal congestion or sore throat [] Respiratory: Denies cough or shortness of breath [] Cardiovascular: No additional information not addressed in HPI [] GI: Denies abdominal pain, nausea, vomiting, bloody stools or diarrhea [] : Denies dysuria or hematuria [] Musculoskeletal: Denies back pain or joint pain [] Integument: Denies rash or skin lesions [] Neurologic: Denies headache, focal weakness or sensory changes [] Endocrine: Denies polyuria or polydipsia [] All other systems were reviewed and found to be within normal limits, except as documented in this note. Current Medications Current Medications Current Medications Medications (Trade) Dose Ordered Sig/Randy Start Time Stop Time Status Last Admin Dose Admin Ciprofloxacin Lactate 200 ml @ 200 mls/hr 1X ONCE 12/26/20 18:00 12/26/20 18:59 DC 12/26/20 18:04 200 MLS/HR Famotidine (Pepcid Vial) 20 mg 1X ONCE 12/26/20 14:30 12/26/20 14:33 DC 12/26/20 14:45 20 MG Fentanyl Citrate (Fentanyl 5ml Vial) 50 mcg 1X ONCE 12/26/20 16:00 12/26/20 15:50 DC Haloperidol Lactate (Haldol) 5 mg 1X ONCE 12/26/20 16:00 12/26/20 16:01 DC 12/26/20 16:45 5 MG Hydromorphone HCl (Dilaudid) 1 mg 1X ONCE 12/26/20 14:30 12/26/20 14:33 DC 12/26/20 14:51 1 MG Iohexol (Omnipaque 300 Mg/ml) 75 ml 1X ONCE 12/26/20 16:45 12/26/20 16:46 DC 12/26/20 16:50 75 ML Lorazepam (Ativan Inj) 2 mg STK-MED ONCE 12/26/20 18:06 2/10/21 18:07 DC Metronidazole 100 ml @ 100 mls/hr 1X ONCE 12/26/20 18:30 12/26/20 19:29 Ondansetron HCl (Zofran) 4 mg 1X ONCE 12/26/20 14:30 12/26/20 14:33 DC 12/26/20 14:42 4 MG Pantoprazole Sodium (Protonix Vial) 40 mg 1X ONCE 12/26/20 16:30 12/26/20 16:31 DC 12/26/20 16:43 40 MG Sodium Chloride 1,000 ml @ 1,000 mls/hr 1X ONCE 12/26/20 14:30 12/26/20 15:29 DC 12/26/20 14:41 1,000 MLS/HR Allergies Allergies Allergies Coded Allergies Type Severity Reaction Last Updated Verified promethazine Allergy Unknown 12/26/20 Yes metoclopramide Adverse Reaction Mild 12/26/20 Yes Physical Exam Physical Exam Constitutional: Well developed, well nourished, no acute distress, non-toxic appearance. [] HENT: Normocephalic, atraumatic, bilateral external ears normal, oropharynx moist, no oral exudates, nose normal. [] Eyes: PERRLA, EOMI, conjunctiva normal, no discharge. [] Neck: Normal range of motion, no tenderness, supple, no stridor. [] Cardiovascular:Heart rate regular rhythm, no murmur [] Lungs & Thorax: Bilateral breath sounds clear to auscultation [] Abdomen: Bowel sounds normal, soft, no tenderness, no masses, no pulsatile masses. [] Skin: Warm, dry, no erythema, no rash. [] Back: No tenderness, no CVA tenderness. [] Extremities: No tenderness, no cyanosis, no clubbing, ROM intact, no edema. [] Neurologic: Alert and oriented X 3, normal motor function, normal sensory function, no focal deficits noted. [] Psychologic: Affect normal, judgement normal, mood normal. [] Current Patient Data Vital Signs Vital Signs Date Time Temp Pulse Resp B/P (MAP) Pulse Ox O2 Delivery O2 Flow Rate FiO2 12/26/20 14:51 22 100 Room Air 12/26/20 14:05 97.3 86 129/88 (102) Lab Results Laboratory Tests Test 12/26/20 14:18 2/10/21 14:25 Urine Collection Type Void Urine Color Yellow Urine Clarity Clear Urine pH 7.0 Urine Specific [place] 1.020 Urine Protein Neg (NEG-TRACE) Urine Glucose (UA) Neg mg/dL (NEG) Urine Ketones (Stick) >=160 mg/dL (NEG) Urine Blood Neg (NEG) Urine Nitrite Neg (NEG) Urine Bilirubin Neg (NEG) Urine Urobilinogen Dipstick 0.2 mg/dL (0.2 mg/dL) Urine Leukocyte Esterase Neg (NEG) Urine RBC Occ /HPF (0-2) Urine WBC Occ /HPF (0-4) Urine Squamous Epithelial Cells Mod /LPF Urine Bacteria Few /HPF (0-FEW) Urine Test Negative (NEG) White Blood Count 7.9 x10^3/uL (4.0-11.0) Red Blood Count 4.40 x10^6/uL (3.50-5.40) Hemoglobin 13.4 g/dL (12.0-15.5) Hematocrit 40.1 % (36.0-47.0) Mean Corpuscular Volume 91 fL (79-100) Mean Corpuscular Hemoglobin 31 pg (25-35) Mean Corpuscular Hemoglobin Concent 34 g/dL (31-37) Red Cell Distribution Width 13.7 % (11.5-14.5) Platelet Count 427 x10^3/uL (140-400) H Neutrophils (%) (Auto) 75 % (31-73) H Lymphocytes (%) (Auto) 19 % (24-48) L Monocytes (%) (Auto) 5 % (0-9) Eosinophils (%) (Auto) 1 % (0-3) Basophils (%) (Auto) 0 % (0-3) Neutrophils # (Auto) 5.9 x10^3uL (1.8-7.7) Lymphocytes # (Auto) 1.5 x10^3/uL (1.0-4.8) Monocytes # (Auto) 0.4 x10^3/uL (0.0-1.1) Eosinophils # (Auto) 0.1 x10^3/uL (0.0-0.7) Basophils # (Auto) 0.0 x10^3/uL (0.0-0.2) Sodium Level 135 mmol/L (136-145) L Potassium Level 3.8 mmol/L (3.5-5.1) Chloride Level 97 mmol/L (98-107) L Carbon Dioxide Level 26 mmol/L (21-32) Anion Gap 12 (6-14) Blood Urea Nitrogen 12 mg/dL (7-20) Creatinine 1.1 mg/dL (0.6-1.0) H Estimated GFR (Cockcroft-Gault) 54.2 BUN/Creatinine Ratio 11 (6-20) Glucose Level 110 mg/dL (70-99) H Calcium Level 9.4 mg/dL (8.5-10.1) Total Bilirubin 0.7 mg/dL (0.2-1.0) Aspartate Amino Transferase (AST) 26 U/L (15-37) Alanine Aminotransferase (ALT) 56 U/L (14-59) Alkaline Phosphatase 91 U/L (46-116) Troponin I Quantitative < 0.017 ng/mL (0-0.055) Total Protein 8.1 g/dL (6.4-8.2) Albumin 4.3 g/dL (3.4-5.0) Albumin/Globulin Ratio 1.1 (1.0-1.7) Lipase 141 U/L (73-393) EKG EKG [] Radiology/Procedures Radiology/Procedures [] Heart Score Risk Factors: Risk Factors: DM, Current or recent (<one month) smoker, HTN, HLP, family his tory of CAD, obesity. Risk Scores: Risk Factors: DM, Current or recent (<one month) smoker, HTN, HLP, family history of CAD, obesity. Course & Med Decision Making Course & Med Decision Making Please see addendum to previous providers note. [] Dragon Disclaimer Dragon Disclaimer This electronic medical record was generated, in whole or in part, using a voice recognition dictation system. Departure Departure: Impression: Primary Impression: Abdominal pain Additional Impressions: Abnormal abdominal CT scan Nausea and vomiting Disposition: 01 DC HOME SELF CARE/HOMELESS Condition: IMPROVED Referrals: ALEXYS IVY PAC (PCP) Patient Instructions: Colitis Additional Instructions: Please read all the attached information. As discussed over the next few days please maintain a light clear diet and drink plenty of fluids. You are given nausea medicine to take at home, please take this prophylactically over the next few days to allow intake of food and fluids. As discussed, please call your GI doctor and primary care physician first thing in the morning to update on ED visit and set up a appointment with either or both as soon as possible. As discussed, please come back to the emergency department with any new or concerning symptoms to avoid the risks we discussed of worsening illness and worst case scenario of . Scripts Ondansetron Hcl (ZOFRAN) 4 Mg Tablet 1 TAB PO TID PRN for NAUSEA for 5 Days, #15 TAB 1 Refill Prov: JAMIE ALLEN MD 12/26/20 Amoxicillin/Potassium Clav (AUGMENTIN 875-125 TABLET) 1 Each Tablet 1 TAB PO BID for abdominal infection for 10 Days, #20 TAB 0 Refills Prov: JAMIE ALLEN MD 12/26/20 Problem Qualifiers Primary Impression: Abdominal pain Abdominal location: generalized Qualified Codes: R10.84 - Generalized abdominal pain Additional Impressions: Nausea and vomiting Vomiting type: unspecified Vomiting Intractability: non-intractable Qualified Codes: R11.2 - Nausea with vomiting, unspecified JAMIE ALLEN MD Dec 26, 2020 19:28
[2020-12-26 19:30] VITALS: BP 142/93
[2020-12-26] MEDS ORDERED: ONDA4TAB7 PO (19:34)
== END 2020-12-26 19:40 | disposition home or self-care (01) ==
LOC: ER 13:52
DX: R11.2 Nausea with vomiting, unspecified (principal); R10.84 Generalized abdominal pain; R93.5 Abnormal findings on diagnostic imaging of other abdominal regions, including retroperitoneum; K21.9 Gastro-esophageal reflux disease without esophagitis; I10 Essential (primary) hypertension; Z90.710 Acquired absence of both cervix and uterus; Z88.8 Allergy status to other drugs, medicaments and biological substances
CPT/HCPCS: 36415; 74177; 76705; 80053; 81001; 81025; 83690; 84484; 85025; 93005; 96361; 96365; 96375; 99285; C9113; J0744; J1170; J1630; J2060; J2405; J3490; J7030; Q9967

== ENCOUNTER → 2021-01-01 | Outpatient (CLI) | payer BC ==
[2020-12-26 19:30] VITALS: BP 142/93
[~2021-01-01] MED LIST changes: +AMOX1TAB61 PO; +ONDA4TAB7 PO
== END ==
LOC: LAB 15:32
PROVIDERS: ATTEND Nurse Anesthetist, Certified Registered
DX: Z20.822 Contact with and (suspected) exposure to COVID-19 (principal)
CPT/HCPCS: U0003

== ENCOUNTER → 2021-01-04 | Day surgery (SDC) | payer BC ==
[~2021-01-04] MED LIST changes: +IPRATRPIUM/ALBUTEROL 0.5/2.5MG 3 ML NEBU. NEB PRN; +IV RINGERS SOLUTION,LACTATED 1,000 ML IV SCH; +LIDOCAINE 2% PF 5 ML VIAL. ONE; +MIDAZOLAM HCL PF 2 MG/2 ML VIAL. IV ONE; +MIDAZOLAM HCL PF 2 MG/2 ML VIAL. ONE; +ONDANSETRON PF 4 MG/2 ML VIAL. IV PRN; +PROPOFOL 10,000 MCG/ML (20ML) VIAL IV ONE
[2021-01-04 12:52] VITALS: BP 126/78
--- NOTE | 2021-01-09 14:10 | PATHOLOGY ---
[facility] Accession Number: [id number] . 01 Material submitted: . PART A: gastrointestinal site - ANTRUM BIOPSY PART B: gastrointestinal site - DISTAL ESOPHAGUS. Modifiers: distal . 01 Clinical history: . GASTRITIS/ABNORMAL CT . 02 Diagnosis: A. Gastric biopsies, antrum: - Chronic gastritis, mild. . B. Esophageal biopsies, distal esophagus: - Segments of hyperplastic squamous esophageal mucosa, esophagogastric mucosa, and gastric mucosa showing chronic inflammation, consistent with reflux esophagitis. (JPM:juliette; 01/09/2021) S 01/09/2021 1132 Local . 02 Comment: Sections of the gastric antral biopsy show congestion and mild chronic inflammation. A properly controlled immunoperoxidase stain for Helicobacter is negative for Helicobacter organisms. . Sections of the distal esophageal biopsy reveal segments of hyperplastic squamous esophageal mucosa, esophagogastric mucosa, and gastric mucosa showing mild to focal moderate chronic inflammation. The findings are consistent with reflux esophagitis. There is no evidence of Silva's change, dysplasia, or malignancy. (JPM:juliette; 01/09/2021) . Special stain performed: Immunoperoxidase stain for Helicobacter on A1 . 02 Electronically signed: . Bryce Cunningham MD, Pathologist NPI- [id number] . 01 Gross description: . A. The specimen is received in formalin, labeled "Anahi [place], antrum biopsy". Received are two segments of pale patel soft tissue ranging in size from 0.3 to 0.5 cm in maximum dimensions. The specimen is submitted entirely in cassette A1. . B. The specimen is received in formalin, labeled "Anahi Macey, distal esophagus". Received are two segments of pale patel soft tissue ranging in size from 0.3 to 0.5 cm in maximum dimensions. The specimen is submitted entirely in cassette B1. (CAA; 01/08/2021) QAC/QAC 01/08/2021 1305 Local . 02 Pathologist provided ICD-10: K29.50, K20.90 . 02 CPT . 756344, 698473, [id number] Specimen Comment: Report sent to Performed at: [address], [place] [id number] MD Stephen Logan MD Phone: [phone] [facility]: [facility] [address] [place], [place] [id number] MD Bryce Cunningham MD Phone: [phone]
== END | disposition home or self-care (01) ==
LOC: SURG 10:05
PROVIDERS: ATTEND Internal Medicine Gastroenterology
DX: R19.4 Change in bowel habit (principal); R93.3 Abnormal findings on diagnostic imaging of other parts of digestive tract; K22.8 Other specified diseases of esophagus; K64.8 Other hemorrhoids; K44.9 Diaphragmatic hernia without obstruction or gangrene; K21.00 Gastro-esophageal reflux disease with esophagitis, without bleeding; K22.70 Barrett's esophagus without dysplasia; R12 Heartburn; K29.50 Unspecified chronic gastritis without bleeding; F41.9 Anxiety disorder, unspecified; I10 Essential (primary) hypertension; E11.9 Type 2 diabetes mellitus without complications; Z88.8 Allergy status to other drugs, medicaments and biological substances; Z79.899 Other long term (current) drug therapy; Z79.84 Long term (current) use of oral hypoglycemic drugs; Z87.440 Personal history of urinary (tract) infections; Z72.89 Other problems related to lifestyle; Z88.2 Allergy status to sulfonamides; Z98.890 Other specified postprocedural states
CPT/HCPCS: 43239; 45378; J2001; J2250; J2704; J7120

== ENCOUNTER 2022-02-18 08:20 | Emergency (ER) | payer BC, OTHER ==
[~2022-02-18] VITALS: Ht 162.6 cm; Wt 118.0 kg
[~2022-02-18 08:20] MED LIST changes: -BUPR150T11 PO; +BUPR150T24 PO; +CLIN-95 PO; -CLIN300C9 PO; -CYCL-331 PO; +CYCL10TA19 PO; -IPRATRPIUM/ALBUTEROL 0.5/2.5MG 3 ML NEBU. NEB PRN; -IV RINGERS SOLUTION,LACTATED 1,000 ML IV SCH; -LIDOCAINE 2% PF 5 ML VIAL. ONE; -MIDAZOLAM HCL PF 2 MG/2 ML VIAL. IV ONE; -MIDAZOLAM HCL PF 2 MG/2 ML VIAL. ONE; -OMEP40CA45 PO; +OMEP40CA7 PO; -ONDANSETRON PF 4 MG/2 ML VIAL. IV PRN; -PROPOFOL 10,000 MCG/ML (20ML) VIAL IV ONE
--- NOTE | 2022-02-18 08:28 | PHYS DOC ---
Past History Past Medical History: Depression, GERD, Hypertension Past Surgical History: Hysterectomy, Other Smoking: Non-smoker Alcohol Use: Occasionally Drug Use: None General Adult HPI: HPI: Patient is a 46-year-old female who presents with right knee pain. Last night between 630 and 7 PM, she twisted her knee while falling. No direct trauma or injury. She denies head injury, dizziness, syncope. She is unable to bear full weight on her knee without pain. She took ibuprofen yesterday, none today. She denies any swelling. Denies joint redness or warmth. Denies fevers. No previous known injury to the knee. She denies any ankle, lower leg or foot pain. No hip pain. No other complaints. Review of Systems: Review of Systems: As per HPI. Allergies: Allergies: Allergies Coded Allergies Type Severity Reaction Last Updated Verified promethazine Allergy Unknown 12/26/20 Yes metoclopramide Adverse Reaction Mild 12/26/20 Yes Physical Exam: PE: Constitutional: Well developed, well nourished, no acute distress, non-toxic appearance. [] HENT: Normocephalic, atraumatic Eyes: No evidence of periorbital or ocular trauma, sclera anicteric Neck: Trachea is midline Cardiovascular: Well-perfused appearing, +2 dorsalis pedis and +2 posterior ti bial pulse right lower extremity, cap refill is brisk, no cyanosis or edema. Lungs & Thorax: Respirations are nonlabored Skin: Warm, dry, no erythema, no rash. No lacerations abrasions or ecchymoses are noted. Extremities: No limb deformity, pelvis is stable, medial right knee tenderness. No ligamentous laxity. No clicking. No palpable crepitus or step-offs. Painful active extension of the right knee. No palpable deformity of the quadriceps or patellar tendon areas. Negative drawer test. No calf tenderness. No palpable warmth or erythema. No significant joint effusion. Compartments are soft. No pain or tenderness out of proportion to exam. No lower leg, ankle, foot tenderness or deformity. Neurologic: Alert and oriented X 3, normal motor function, normal sensory function, no focal deficits noted. [] Psychologic: Affect normal, judgement normal, mood normal. [] EKG: EKG: [] Radiology/Procedures: Radiology/Procedures: IMAGING REPORT Signed PATIENT: RACHEL WOLFUNT: [id number] : 1975 LOCATION: ER AGE: 46 SEX: F EXAM STATUS: REG ER ORD. PHYSICIAN: JUAN JARVIS DO REASON: fall, pain PROCEDURE: KNEE RIGHT 3V Right knee 3 views. HISTORY: Pain after a fall. 3 views were taken of the right knee. There is not evidence of a fracture or joint effusion or acute osseous abnormality. IMPRESSION: 1. No fracture or acute osseous abnormality in the right knee. Electronically signed by: Anjel Hernandez MD (02/18/2022 9:36 AM) [id number] DICTATED AND SIGNED BY: ANJEL HERNANDEZ MD DATE: 02/18/2235 CC: JUAN JARVIS DO; ALEXYS IVY PAC ~ Heart Score: C/O Chest Pain: No Risk Factors: Risk Factors: DM, Current or recent (<one month) smoker, HTN, HLP, family history of CAD, obesity. Risk Scores: Score 0 - 3: 2.5% MACE over next 6 weeks - Discharge Home Score 4 - 6: 20.3% MACE over next 6 weeks - Admit for Clinical Observation Score 7 - 10: 72.7% MACE over next 6 weeks - Early Invasive Strategies Course & Med Decision Making: Course & Med Decision Making Pertinent Labs and Imaging studies reviewed. (See chart for details) P.o. [place] was given for pain. Ice pack, Cesario wrap and crutches are given. I discussed the findings, differential diagnosis and plan of care with her. I told her to follow-up with her PCP, she may require nonemergent outpatient MRI for continued symptoms. Return precautions are given. Dragon Disclaimer: Dragon Disclaimer: This electronic medical record was generated, in whole or in part, using a voice recognition dictation system. Departure Departure: Impression: Primary Impression: Right knee pain Qualified Codes: M25.561 - Pain in right knee Disposition: HOME / SELF CARE / HOMELESS Condition: STABLE Referrals: ALEXYS IVY PAC (PCP) Patient Instructions: Knee Sprain Additional Instructions: Use the pain medicine as needed/as directed. You may take [id number] ibuprofen as well. Ice, rest, elevate your knee. You may use the crutches for toe-touch weightbearing. Return to the ER for new injury or trauma, severe swelling, severe redness, temperature 100.4 or higher or for any other concerns. Please contact your primary care doctor if you need any refills of pain medications, also if your symptoms persist or worsen, you will need a nonemergent, outpatient MRI of your knee. Scripts Hydrocodone Bit/Acetaminophen (HYDROCODONE-APAP 5-325 ) 1 Each Tablet 1 TAB PO PRN Q6HRS PRN for PAIN, #20 TAB 0 Refills Prov: JUAN JARVIS DO 02/18/22 JUAN JARVIS DO Feb 18, 2022 08:28
[2022-02-18] MEDS ORDERED: HYDROcodone/APAP 5/325MG 1 TAB TABLET PO ONE (09:00)
[2022-02-18 09:11] VITALS: BP 160/85
[2022-02-18] MEDS ORDERED: HYDR-2155 PO (09:26)
--- NOTE | 2022-02-18 09:38 | RAD ---
Right knee 3 views. HISTORY: Pain after a fall. 3 views were taken of the right knee. There is not evidence of a fracture or joint effusion or acute osseous abnormality. IMPRESSION: 1. No fracture or acute osseous abnormality in the right knee. Electronically signed by: Anjel Hernandez MD (02/18/2022 9:36 AM) [id number]
== END 2022-02-18 09:30 | disposition home or self-care (01) ==
LOC: ER 08:20
DX: M25.561 Pain in right knee (principal); K21.9 Gastro-esophageal reflux disease without esophagitis; I10 Essential (primary) hypertension; Z88.8 Allergy status to other drugs, medicaments and biological substances
CPT/HCPCS: 73562; 99283